=== PATIENT | female | born 1985 | race Caucasian/White ===

== ENCOUNTER 2016-06-29 10:56 | Day surgery (SDC) | payer BC ==
[~2016-06-29] VITALS: Ht 160 cm; Wt 79.5 kg
--- NOTE | ~2016-06-29 | OR ---
PATIENT'S NAME: VIKTOR CRENSHAW [facility] AGE: 30 Y [address] ROOM: [place] [address] LOCATION: [facility] ADMIT DATE: 06/29/2016 OR/Procedure Report DISCHARGE DATE: 06/30/2016 FAMILY PHYSICIAN: Willem Matt MD ATTENDING PHYSICIAN: Heriberto Lee SURGEON: Heriberto Lee MD SPA DIRECTOR/FINANCE: DATE OF PROCEDURE: 06/29/2016 PREOPERATIVE DIAGNOSIS: Stress urinary incontinence. POSTOPERATIVE DIAGNOSIS: Stress urinary incontinence. PROCEDURE PERFORMED: Mid urethral suspension (TVT). ANESTHESIA: General. COMPLICATIONS: None. ESTIMATED BLOOD LOSS: 50 mL. INDICATION FOR PROCEDURE: The patient is a 30-year-old female with stress urinary incontinence requesting surgical repair. DETAILS OF PROCEDURE: After informed consent was obtained, the patient was taken to the operating room. A general anesthetic was applied. She was placed in dorsal lithotomy position. The groin area and lower abdomen were prepped and draped in normal sterile fashion. A 20-[employer] catheter was placed. Two small skin incisions were made over the pubic bone bilaterally. The vasopressin was injected into the anterior vaginal wall. The anterior vaginal wall was opened with a T-incision using a scalpel blade and Metzenbaum scissors. I then developed a space into the endopelvic fascia bilaterally. Next, the TVT needles were placed through the anterior abdominal wall incision and out the anterior vaginal wall bilaterally. Cystoscopy was performed, which showed the needles had not penetrated the bladder wall. The tape was attached to the end of each needle and pulled through. Heavy curved scissors were used as a spacing device. The sheath was cut and pulled through locking the tape in position. The excess was excised at the abdominal wall. This was then Steri-Stripped. The anterior vaginal wall was then closed with a running interlocking 2-0 Vicryl suture. The vagina was then packed with Silvadene- soaked vaginal packing. The patient tolerated her procedure well and was transferred to recovery room in good condition. PATIENT'S NAME: VIKTOR CRENSHAW [facility] AGE: 30 Y [address] ROOM: [place] [address] LOCATION: [facility] ADMIT DATE: 06/29/2016 OR/Procedure Report DISCHARGE DATE: 06/30/2016 FAMILY PHYSICIAN: Willem Matt MD ATTENDING PHYSICIAN: Heriberto Lee MD TABITHA SINGH/kemall /[id number] CC: MD Susanne Contreras PA-C d: 06/29/161950 t: 07/16/161914, OPERATIVE SUMMARY
[~2016-06-29 10:56] MED LIST: CLARITIN10 MG PO; IMITREX100 MG PO; INDERAL LA80 MG PO; LEVOTHROID (S100 MCG PO; PROZAC40 MG PO
[2016-06-29 11:38] LABS: BASOPHIL % 0.4 %; EOSINOPHIL # 0.9 K/uL (0.0-0.5); EOSINOPHIL % 9.8 %; HEMATOCRIT 41.4 % (33.0-46.0); HEMOGLOBIN 14.2 g/dL (11.0-15.0); IMMATURE GRANULOCYTE % 0.2 %; LYMPHOCYTE # 3.1 K/uL (0.8-4.0); LYMPHOCYTE % 32.1 %; MCH 30.8 pg (27.0-34.0); MCHC 34.3 gm/dL (32.0-36.5); MCV 89.8 fl (83.0-98.0); MONOCYTE # 0.7 K/uL (0.0-1.0); MONOCYTE % 7.4 %; MPV 9.4 fl (9.4-12.4); NEUTROPHIL # (ANC) 4.8 K/uL (1.8-7.8); NEUTROPHIL % 50.1 %; NRBC % 0 /100WBC (0-0.00); PLATELET COUNT 249 K/uL (150-450); RBC 4.61 M/uL (3.50-5.50); WBC 9.5 K/uL (4.0-11.0)
[2016-06-29 12:00] LABS: ALBUMIN 4.5 gm/dL (3.5-5.0); ALK PHOS 57 IU/L (33-138); ALT 22 IU/L (12-78); ANION GAP 14.1 (10.0-19.0); AST 19 IU/L (10-40); BLOOD UREA NITROGEN 13 mg/dL (6-24); CALCIUM 8.7 mg/dL (8.5-10.5); CHLORIDE 106 mMol/L (96-110); CO2 23 mMol/L (22-32); CREATININE 0.7 mg/dL (0.5-1.1); ESTIMATED GFR (MDRD EQUATION) > 60; POTASSIUM 4.1 mMol/L (3.7-5.1); SODIUM 139 mMol/L (135-145); TOTAL BILIRUBIN 0.5 mg/dL (0.0-1.5); TOTAL PROTEIN 7.8 g/dL (6.0-8.4)
--- NOTE | 2016-06-29 17:29 | NUR ---
Significant Event: PT ARRIVED FROM PACU 1540. MIDURETHERAL SLING FOR DR REED. BEDREST. ADVANCE DIET TOLERATED. IVF RUNNING TO L HAND @ 125/HR, CAN SALINE LOCK WHEN NACHO PO. 2 STAB SITES TO LOWER ABDOMEN, STERI STRIPS. R[place] PATENT. PO ABX. DENIES PAIN, DENIES NAUSEA. POST OP VITALS STABLE, ON RA, AFEBRILE. Follow up: POST OP VITALS COMPLETE AT 2230
--- NOTE | 2016-06-30 05:32 | NUR ---
Significant Event: Bedrest. [place] at 0323. Tylenol for headache at 0356. On room air. 2 stab sites with scant drainage. Power catheter. Follow up:
[2016-06-30 05:38] LABS: BASOPHIL % 0.1 %; EOSINOPHIL % 0.1 %; HEMATOCRIT 37.7 % (33.0-46.0); IMMATURE GRANULOCYTE # 0.1 K/uL (0.0-0.3); IMMATURE GRANULOCYTE % 0.4 %; LYMPHOCYTE # 1.3 K/uL (0.8-4.0); LYMPHOCYTE % 9.5 %; MCH 30.8 pg (27.0-34.0); MCHC 34.5 gm/dL (32.0-36.5); MCV 89.3 fl (83.0-98.0); MONOCYTE # 0.6 K/uL (0.0-1.0); MONOCYTE % 4.4 %; NEUTROPHIL # (ANC) 11.7 K/uL (1.8-7.8); NEUTROPHIL % 85.5 %; NRBC % 0 /100WBC (0-0.00); PLATELET COUNT 226 K/uL (150-450); RBC 4.22 M/uL (3.50-5.50); RDW-CV 11.7 % (11.9-14.6); WBC 13.7 K/uL (4.0-11.0)
[2016-06-30] MEDS ORDERED: LEVAQUIN500 MG PO (12:20)
[2016-06-30] MEDS ORDERED: NORCO 10-325 T1 EACH PO (12:21)
--- NOTE | 2016-06-30 14:15 | NUR ---
DISCHARGE INSTRUCTIONS & SCRIPTS EXPLAINED & GIVEN TO PT.VERBALIZED UNDERSTANDMENT.DISMISSED PER W/C TO FRONT DOOR,TO CAR WITH TO GO HOME.
== END 2016-06-30 14:20 | disposition disaster alternative care site (69) ==
LOC: GMSU 10:56 → GSDC 10:56 → GMSU 15:40 → GSDC 06-30 14:20
PROVIDERS: Urology
PROC: 0TSD0ZZ Reposition Urethra, Open Approach (ICD-10-PCS; principal; 2016-06-29)
DX: N39.3 Stress incontinence (female) (male) (principal); Z79.2 Long term (current) use of antibiotics; Z87.891 Personal history of nicotine dependence
CPT/HCPCS: C2631; J0295; J0690; J1100; J2001; J2405; J7040; J7120